=== PATIENT | male | born 1985 | race African-American/Black ===

== ENCOUNTER 2018-08-30 16:12 | Emergency (ER) | payer SELFPAY ==
[~2018-08-30] VITALS: Ht 190.5 cm; Wt 100.0 kg
[2018-08-30 16:24] VITALS: BP 147/107
[2018-08-30] MEDS ORDERED: FLUORESCEIN SODIUM 1 MG STRIP OD ONE (18:00)
[2018-08-30] MEDS ORDERED: PROPARACAINE HCL 0.5% 15 ML OPHTHALMIC SOLUTION OU ONE (18:00)
[2018-08-30] MEDS ORDERED: FLUORESCEIN SODIUM 1 MG STRIP OS ONE (18:00)
== END 2018-08-30 20:13 | disposition home or self-care (01) ==
LOC: EMS 16:14
DX: H10.89 Other conjunctivitis (principal); B99.9 Unspecified infectious disease